=== PATIENT | female | born 1965 | race Hispanic/Latino ===

== ENCOUNTER → 2022-12-08 | Day surgery (SDC) | payer BC ==
[~2022-12-08] MED LIST: CEFTRIAXONE 1 GM VIAL ONE; DEXAMETHASONE SOD PHOS INJ 4 MG/ML SDV ONE; FENTANYL CITRATE/PF 100MCG/2 ML INJ ONE; GENTAMICIN 80MG/NS 100 ML 200 ML IV ONE; IOPAMIDOL 610MG/1ML 300 MG/ML VIAL IV ONE; LACTATED RINGER'S 1,000 ML ONE; LIDOCAINE HCL 2% LOCAL INJ 5 ML SDV VIAL INJ ONE; MELOXICAM7.5 MG PO; METHOCARBAMOL750 MG PO; MIDAZOLAM HCL 2 MG/2 ML VIAL ONE; MYRBETRIQ25 MG PO; ONDANSETRON HCL INJ 2MG/ML 2ML 2 MG/ML VIAL ONE; PAROXETINE CR12.5 MG; PROPOFOL IV EMULSION 10 MG/ML 20 ML VIAL ONE; PROXETINE; SEVOFLURANE INHAL SOLN 250 ML PEN BTL ONE; VITAMIN D; [UNRECOGNIZED DRUG - REMARK]
[2022-12-08 07:07] LABS: BASOPHILS % 0.3 % (0.0-1.0); EOSINOPHILS # (AUTO) 0.2 (0.0-0.4); EOSINOPHILS % 2.4 % (0.0-6.0); HEMATOCRIT 42.1 % (34.2-44.1); HEMOGLOBIN 13.7 g/dL (12.0-16.0); LYMPHOCYTES # (AUTO) 1.9 (1.0-3.2); LYMPHOCYTES % 19.7 % (18.0-39.1); MEAN CORPUSCULAR HEMOGLOBIN 27.9 pg (28-32); MEAN CORPUSCULAR HGB CONC 32.5 g/dL (31-35); MEAN CORPUSCULAR VOLUME 85.7 fL (81-99); MONOCYTES # (AUTO) 0.7 (0.2-0.8); MONOCYTES % 7.1 % (4.4-11.3); NEUTROPHILS # (AUTO) 6.8 (2.1-6.9); NEUTROPHILS % 70.1 % (38.7-80.0); PLATELET COUNT 305 x10e3/uL (140-360); RED BLOOD COUNT 4.91 x10e6/uL (3.6-5.1); RED CELL DISTRIBUTION WIDTH 13.2 % (11.7-14.4); WHITE BLOOD COUNT 9.75 x10e3/uL (4.8-10.8)
[2022-12-08 07:23] LABS: ANION GAP 12.1 mmol/L (8-16); CREATININE, SERUM 0.68 mg/dL (0.57-1.11); POTASSIUM 4.1 mmol/L (3.5-5.1)
[2022-12-08] MEDS: FENTANYL CITRATE/PF 100MCG/2 ML INJ ONE ×2 (11:15→11:35)
[2022-12-08 12:15] VITALS: BP 127/79; PULSE 89; RESP 17; O2SAT 97
== END | disposition home or self-care (01) ==
LOC: OR 06:39
PROVIDERS: ATTEND Urology
DX: N20.0 Calculus of kidney (principal); N20.1 Calculus of ureter; Z46.6 Encounter for fitting and adjustment of urinary device; N39.0 Urinary tract infection, site not specified; N28.1 Cyst of kidney, acquired; R80.9 Proteinuria, unspecified; N81.2 Incomplete uterovaginal prolapse; N36.41 Hypermobility of urethra; N95.2 Postmenopausal atrophic vaginitis; I10 Essential (primary) hypertension; E66.01 Morbid (severe) obesity due to excess calories; Z79.1 Long term (current) use of non-steroidal anti-inflammatories (NSAID); Z79.899 Other long term (current) drug therapy; Z68.39 Body mass index [BMI] 39.0-39.9, adult
CPT/HCPCS: 36415; 52356; 74018; 74420; 80048; 84550; 85025; 87086; 88300; C1769; C2617; J0696; J1100; J1580; J2001; J2250; J2405; J2704; J3010; J7121; Q9967

== ENCOUNTER → 2023-05-04 | Day surgery (SDC) | payer BC ==
[2023-05-03 12:49] LABS: BASOPHILS % 0.5 % (0.0-1.0); EOSINOPHILS # (AUTO) 0.2 (0.0-0.4); EOSINOPHILS % 1.9 % (0.0-6.0); HEMATOCRIT 42.3 % (34.2-44.1); HEMOGLOBIN 14.1 g/dL (12.0-16.0); LYMPHOCYTES # (AUTO) 3.1 (1.0-3.2); LYMPHOCYTES % 35.8 % (18.0-39.1); MEAN CORPUSCULAR HEMOGLOBIN 27.9 pg (28-32); MEAN CORPUSCULAR HGB CONC 33.3 g/dL (31-35); MEAN CORPUSCULAR VOLUME 83.8 fL (81-99); MONOCYTES # (AUTO) 0.5 (0.2-0.8); MONOCYTES % 5.9 % (4.4-11.3); NEUTROPHILS # (AUTO) 4.9 (2.1-6.9); NEUTROPHILS % 55.7 % (38.7-80.0); PLATELET COUNT 312 x10e3/uL (140-360); RED BLOOD COUNT 5.05 x10e6/uL (3.6-5.1); RED CELL DISTRIBUTION WIDTH 13.9 % (11.7-14.4); WHITE BLOOD COUNT 8.74 x10e3/uL (4.8-10.8)
[2023-05-03 13:09] LABS: ANION GAP 14.9 mmol/L (8-16); CALCIUM 9.8 mg/dL (8.4-10.2); CREATININE, SERUM 0.66 mg/dL (0.57-1.11); POTASSIUM 3.9 mmol/L (3.5-5.1)
[~2023-05-04] MED LIST changes: +ACETAMINOPHEN 1000 MG/100 ML 100 ML IV ONE; +ACETAMINOPHEN 325 MG TAB ONE; +ACETAMINOPHEN/CODEINE 300MG - 30MG TAB ONE; +BUPIVACAINE HCL 0.5% INJ 30 ML VIAL INJ ONE; -CEFTRIAXONE 1 GM VIAL ONE; +EPHEDRINE SULFATE INJ 50 MG/ML VIAL ONE; -GENTAMICIN 80MG/NS 100 ML 200 ML IV ONE; -IOPAMIDOL 610MG/1ML 300 MG/ML VIAL IV ONE; -LACTATED RINGER'S 1,000 ML ONE; +LIDOCAINE 2% /EPINEPHRINE 20 ML SDV INJ ONE; -MIDAZOLAM HCL 2 MG/2 ML VIAL ONE; +SUGAMMADEX SODIUM 200 MG/2 ML VIAL IV ONE; +VESICARE5 MG PO
[2023-05-04] MEDS: PIPERACILLIN/TAZOBACTAM 3.375 GM VIAL ONE (05:52)
[2023-05-04] MEDS: GENTAMICIN 80MG/NS 100 ML 200 ML IV ONE (05:52)
[2023-05-04] MEDS: CLINDAMYCIN 600MG / 50ML 50 ML IV ONE (05:52)
[2023-05-04] MEDS: LACTATED RINGER'S 1,000 ML ONE (05:52)
[2023-05-04] MEDS: ACETAMINOPHEN/CODEINE 300MG - 30MG TAB PO ONE (11:20)
[2023-05-04 11:40] VITALS: BP 140/79; PULSE 78; RESP 14; O2SAT 97
== END | disposition home or self-care (01) ==
LOC: OR 05:22
PROVIDERS: ATTEND Urology
DX: N39.41 Urge incontinence (principal); E66.01 Morbid (severe) obesity due to excess calories; F32.A Depression, unspecified; Z01.810 Encounter for preprocedural cardiovascular examination; Z01.812 Encounter for preprocedural laboratory examination
CPT/HCPCS: 36415; 64581; 64590; 76000; 80048; 85025; 93005; 95972; C1767; C1778; C1787; J0131; J1100; J1580; J2001 ×2; J2405; J2543; J2704; J3010; J7121

== ENCOUNTER → 2023-06-01 | Outpatient (REF) | payer BC ==
[~2023-06-01] MED LIST changes: -ACETAMINOPHEN 1000 MG/100 ML 100 ML IV ONE; -ACETAMINOPHEN 325 MG TAB ONE; -ACETAMINOPHEN/CODEINE 300MG - 30MG TAB ONE; -BUPIVACAINE HCL 0.5% INJ 30 ML VIAL INJ ONE; -DEXAMETHASONE SOD PHOS INJ 4 MG/ML SDV ONE; -EPHEDRINE SULFATE INJ 50 MG/ML VIAL ONE; -FENTANYL CITRATE/PF 100MCG/2 ML INJ ONE; -LIDOCAINE 2% /EPINEPHRINE 20 ML SDV INJ ONE; -LIDOCAINE HCL 2% LOCAL INJ 5 ML SDV VIAL INJ ONE; -ONDANSETRON HCL INJ 2MG/ML 2ML 2 MG/ML VIAL ONE; -PROPOFOL IV EMULSION 10 MG/ML 20 ML VIAL ONE; -SEVOFLURANE INHAL SOLN 250 ML PEN BTL ONE; -SUGAMMADEX SODIUM 200 MG/2 ML VIAL IV ONE
== END ==
LOC: RAD 10:50
PROVIDERS: ATTEND Urology
DX: N39.41 Urge incontinence (principal)
CPT/HCPCS: 72170; 72220

== ENCOUNTER → 2023-10-31 | Day surgery (SDC) | payer BC ==
[2023-10-30 12:42] LABS: BASOPHILS % 0.6 % (0.0-1.0); EOSINOPHILS # (AUTO) 0.1 (0.0-0.4); EOSINOPHILS % 1.2 % (0.0-6.0); HEMATOCRIT 45.9 % (34.2-44.1); HEMOGLOBIN 14.8 g/dL (12.0-16.0); LYMPHOCYTES # (AUTO) 2.9 (1.0-3.2); LYMPHOCYTES % 40.6 % (18.0-39.1); MEAN CORPUSCULAR HEMOGLOBIN 28.4 pg (28-32); MEAN CORPUSCULAR HGB CONC 32.2 g/dL (31-35); MEAN CORPUSCULAR VOLUME 88.1 fL (81-99); MONOCYTES # (AUTO) 0.4 (0.2-0.8); MONOCYTES % 5.4 % (4.4-11.3); NEUTROPHILS # (AUTO) 3.8 (2.1-6.9); NEUTROPHILS % 51.9 % (38.7-80.0); PLATELET COUNT 310 x10e3/uL (140-360); RED BLOOD COUNT 5.21 x10e6/uL (3.6-5.1); RED CELL DISTRIBUTION WIDTH 13.6 % (11.7-14.4); WHITE BLOOD COUNT 7.25 x10e3/uL (4.8-10.8)
[2023-10-30 12:57] LABS: ANION GAP 14.6 mmol/L (8-16); CALCIUM 10.3 mg/dL (8.4-10.2); CREATININE, SERUM 0.71 mg/dL (0.57-1.11); POTASSIUM 3.6 mmol/L (3.5-5.1)
[~2023-10-31] MED LIST changes: +ACETAMINOPHEN 1000 MG/100 ML IV ONE; +BOTULINUM TOXIN TYPE A 100 UNIT VIAL IM ONE; +DEXAMETHASONE SOD PHOS INJ 4 MG/ML SDV ONE; +DEXMEDETOMIDINE HCL 200 MCG/2 ML VIAL ONE; +FAMOTIDINE 20 MG/2 ML VIAL IV ONE; +FENTANYL CITRATE/PF 100MCG/2 ML INJ ONE; +IOPAMIDOL 610MG/1ML 300 MG/ML VIAL IV ONE; +LIDOCAINE HCL 2% LOCAL INJ 5 ML SDV VIAL INJ ONE; +ONDANSETRON HCL INJ 2MG/ML 2ML 2 MG/ML VIAL ONE; -PAROXETINE CR12.5 MG; +PAROXETINE CR12.5 MG PO; +PROPOFOL IV EMULSION 10 MG/ML 20 ML VIAL ONE; +SEVOFLURANE INHAL SOLN 250 ML PEN BTL ONE; +ZEPBOUND5 MG/0.5 M SC
[2023-10-31] MEDS: CEFTRIAXONE 1 GM VIAL ONE (05:44)
[2023-10-31] MEDS: LACTATED RINGER'S 1,000 ML ONE (05:44)
[2023-10-31 07:36] VITALS: TEMP 98.1
[2023-10-31] MEDS: PHENAZOPYRIDINE HCL 100 MG TAB ONE (08:03)
[2023-10-31 08:25] VITALS: BP 108/72; PULSE 72; RESP 16; O2SAT 98
== END | disposition home or self-care (01) ==
LOC: OR 05:34
PROVIDERS: ATTEND Urology
DX: N39.41 Urge incontinence (principal); N39.0 Urinary tract infection, site not specified; Z87.442 Personal history of urinary calculi; N81.3 Complete uterovaginal prolapse; N36.41 Hypermobility of urethra; N95.2 Postmenopausal atrophic vaginitis; I10 Essential (primary) hypertension; E78.5 Hyperlipidemia, unspecified; M47.9 Spondylosis, unspecified; G89.29 Other chronic pain; E66.01 Morbid (severe) obesity due to excess calories; Z01.810 Encounter for preprocedural cardiovascular examination; Z01.812 Encounter for preprocedural laboratory examination; Z79.899 Other long term (current) drug therapy
CPT/HCPCS: 36415; 52005; 52287; 74420; 80048; 85025; 87086; 93005; J0131; J0587; J0696; J1100; J2001; J2405; J2704; J3010; J7121; Q9967

== ENCOUNTER → 2023-11-28 | Outpatient (REF) | payer BC ==
[~2023-11-28] MED LIST changes: -ACETAMINOPHEN 1000 MG/100 ML IV ONE; -BOTULINUM TOXIN TYPE A 100 UNIT VIAL IM ONE; -DEXAMETHASONE SOD PHOS INJ 4 MG/ML SDV ONE; -DEXMEDETOMIDINE HCL 200 MCG/2 ML VIAL ONE; -FAMOTIDINE 20 MG/2 ML VIAL IV ONE; -FENTANYL CITRATE/PF 100MCG/2 ML INJ ONE; -IOPAMIDOL 610MG/1ML 300 MG/ML VIAL IV ONE; -LIDOCAINE HCL 2% LOCAL INJ 5 ML SDV VIAL INJ ONE; -ONDANSETRON HCL INJ 2MG/ML 2ML 2 MG/ML VIAL ONE; -PROPOFOL IV EMULSION 10 MG/ML 20 ML VIAL ONE; -SEVOFLURANE INHAL SOLN 250 ML PEN BTL ONE
== END ==
LOC: RAD 15:13
PROVIDERS: ATTEND Urology
DX: N20.0 Calculus of kidney (principal)
CPT/HCPCS: 74018

== ENCOUNTER → 2024-01-18 | Day surgery (SDC) | payer BC ==
[~2024-01-18] MED LIST changes: +ACETAMINOPHEN 1000 MG/100 ML 100 ML IV ONE; +BOTULINUM TOXIN TYPE A 100 UNIT VIAL IM ONE; +DEXAMETHASONE SOD PHOS INJ 4 MG/ML SDV ONE; +EPHEDRINE SULFATE INJ 50 MG/ML VIAL ONE; +FENTANYL CITRATE/PF 100MCG/2 ML INJ ONE; +IMMODIUM PO; +LIDOCAINE HCL 2% LOCAL INJ 5 ML SDV VIAL INJ ONE; +ONDANSETRON HCL INJ 2MG/ML 2ML 2 MG/ML VIAL ONE; +PROPOFOL IV EMULSION 10 MG/ML 20 ML VIAL ONE
[2024-01-18] MEDS: LACTATED RINGER'S 1,000 ML ONE (06:39)
[2024-01-18] MEDS: CEFTRIAXONE 1 GM VIAL ONE (06:40)
[2024-01-18 08:25] VITALS: TEMP 98.1
[2024-01-18] MEDS: PHENAZOPYRIDINE HCL 100 MG TAB ONE (08:25)
[2024-01-18 09:00] VITALS: BP 138/76; PULSE 81; RESP 18; O2SAT 99
== END | disposition home or self-care (01) ==
LOC: OR 05:44
PROVIDERS: ATTEND Urology
DX: N39.41 Urge incontinence (principal); N39.0 Urinary tract infection, site not specified; Z87.442 Personal history of urinary calculi; N81.3 Complete uterovaginal prolapse; N36.41 Hypermobility of urethra; N95.2 Postmenopausal atrophic vaginitis; N32.89 Other specified disorders of bladder; I10 Essential (primary) hypertension; E78.5 Hyperlipidemia, unspecified; E66.01 Morbid (severe) obesity due to excess calories; G89.29 Other chronic pain; Z79.899 Other long term (current) drug therapy
CPT/HCPCS: 52005; 52287; 74420; 87086; C1758; J0131; J0587; J0696; J1100; J2003; J2405; J2704; J3010; J7121

== ENCOUNTER → 2024-04-11 | Day surgery (SDC) | payer BC ==
[~2024-04-11] MED LIST changes: -ACETAMINOPHEN 1000 MG/100 ML 100 ML IV ONE; +FAMOTIDINE 20 MG/2 ML VIAL IV ONE; +GLYCOPYRROLATE INJ 0.2 MG/ML VIAL ONE; +METOCLOPRAMIDE HCL 10 MG/2ML VIAL ONE; +SEVOFLURANE INHAL SOLN 250 ML PEN BTL ONE
[2024-04-11 11:33] LABS: BASOPHILS % 0.6 % (0.0-1.0); EOSINOPHILS # (AUTO) 0.1 (0.0-0.4); HEMATOCRIT 42.5 % (34.2-44.1); HEMOGLOBIN 14.2 g/dL (12.0-16.0); LYMPHOCYTES # (AUTO) 2.4 (1.0-3.2); LYMPHOCYTES % 34.5 % (18.0-39.1); MEAN CORPUSCULAR HEMOGLOBIN 28.6 pg (28-32); MEAN CORPUSCULAR HGB CONC 33.4 g/dL (31-35); MEAN CORPUSCULAR VOLUME 85.5 fL (81-99); MONOCYTES # (AUTO) 0.5 (0.2-0.8); MONOCYTES % 6.6 % (4.4-11.3); NEUTROPHILS # (AUTO) 3.8 (2.1-6.9); NEUTROPHILS % 55.9 % (38.7-80.0); PLATELET COUNT 290 x10e3/uL (140-360); RED BLOOD COUNT 4.97 x10e6/uL (3.6-5.1); RED CELL DISTRIBUTION WIDTH 13.2 % (11.7-14.4); WHITE BLOOD COUNT 6.87 x10e3/uL (4.8-10.8)
[2024-04-11 11:52] LABS: ANION GAP 13.2 mmol/L (8-16); CALCIUM 10.1 mg/dL (8.4-10.2); CREATININE, SERUM 0.7 mg/dL (0.57-1.11); POTASSIUM 4.2 mmol/L (3.5-5.1)
[2024-04-11] MEDS: CEFTRIAXONE 1 GM VIAL ONE (12:34)
[2024-04-11] MEDS: LACTATED RINGER'S 1,000 ML ONE (12:34)
[2024-04-11 14:20] VITALS: TEMP 97.8
[2024-04-11 15:32] VITALS: BP 116/70; PULSE 80; RESP 16; O2SAT 97
== END | disposition home or self-care (01) ==
LOC: OR 13:27
PROVIDERS: ATTEND Urology
DX: N39.46 Mixed incontinence (principal); N32.81 Overactive bladder; N81.89 Other female genital prolapse; N81.3 Complete uterovaginal prolapse; N36.41 Hypermobility of urethra; N32.89 Other specified disorders of bladder; N95.2 Postmenopausal atrophic vaginitis; R35.1 Nocturia; N39.0 Urinary tract infection, site not specified; R80.9 Proteinuria, unspecified; Z87.442 Personal history of urinary calculi; Z96.82 Presence of neurostimulator; E66.9 Obesity, unspecified; I10 Essential (primary) hypertension; F32.A Depression, unspecified; Z79.899 Other long term (current) drug therapy; Z68.34 Body mass index [BMI] 34.0-34.9, adult
CPT/HCPCS: 36415; 52005; 52287; 74420; 80048; 85025; 87086; 93005; C1758; J0587; J0696; J1100; J2003; J2405; J2704; J2765; J3010; J7121